=== PATIENT | female | born 1965 | race African-American/Black ===

== ENCOUNTER 2016-07-28 13:40 | Inpatient (IN) | payer BC ==
[~2016-07-28] VITALS: Ht 162.6 cm; Wt 121.5 kg
[~2016-07-28 13:40] MED LIST: ASPIRIN 81M81 MG/TA2 PO; CELEXA40 MG PO; DEXILANT60 MG PO; GLUCOPHAGE500 MG/TAB PO; LOPRESSOR 550 MG/TAB PO; NORCO 325 MG-51 TAB PO; PACERONE400 MG PO; PRINIVIL2.5 MG PO; WELLBUTRIN 75MG75 MG PO; XARELTO20 MG PO
[2016-07-28] MEDS ORDERED: NEXIUM 40MG40 MG PO (13:50)
[2016-07-28 14:41] LABS: CALCIUM 8.9 mg/dL (8.4-10.2); CREATININE, serum 0.97 mg/dL (0.52-1.25)
[2016-07-28 15:03] LABS: BASO # 0.1 (0.0-0.2); BASO % 1.2 % (0.0-2.0); EOS % 0.2 % (0-4.0); GRAN # 3.1 (1.4-6.5); GRAN % 61.9 % (42.2-75.2); LYMPH # 1.5 (1.2-3.4); MEAN CELL VOLUME 62 fl (80.0-100.0); MEAN CORPUSCULAR HGB CONC 28 g/dl (33.0-37.0); MEAN PLATELET VOLUME 10.1 fl (7.4-10.4); MONO # 0.4 (0.1-0.6); MONO % 7.5 % (1.7-9.3); PLATELET COUNT 843 K/mm3 (130-400); RED BLOOD COUNT 4.65 M/mm3 (4.10-5.30); REDCELL DISTRIBUTION WIDTH-CV 22.1 % (11.5-14.5)
[2016-07-28 15:06] LABS: HEMATOCRIT 28.8 % (37.0-47.0); MEAN CORPUSCULAR HEMOGLOBIN 17 pg (27.0-31.0)
[2016-07-28 15:34] LABS: MAGNESIUM 1.6 mg/dL (1.6-2.3)
[2016-07-28 16:21] VITALS: BP 110/77; PULSE 153; TEMP 97.9
[2016-07-28 19:01] VITALS: BP 110/77; PULSE 153; TEMP 98.1
[2016-07-28 20:00] VITALS: BP 135/78; PULSE 125; TEMP 97.8
[2016-07-29] VITALS: BP 105/90; PULSE 130; TEMP 97.7
[2016-07-29 04:00] VITALS: BP 127/98; PULSE 130; TEMP 98.5
[2016-07-29 06:40] LABS: BASO # 0.1 (0.0-0.2); BASO % 1.2 % (0.0-2.0); EOS % 0.8 % (0-4.0); GRAN % 60.5 % (42.2-75.2); LYMPH # 1.5 (1.2-3.4); LYMPH % 29.7 % (20.0-51.0); MEAN CELL VOLUME 63 fl (80.0-100.0); MEAN CORPUSCULAR HGB CONC 27 g/dl (33.0-37.0); MEAN PLATELET VOLUME 9.4 fl (7.4-10.4); MONO # 0.4 (0.1-0.6); MONO % 7.6 % (1.7-9.3); RED BLOOD COUNT 4.54 M/mm3 (4.10-5.30); REDCELL DISTRIBUTION WIDTH-CV 21.7 % (11.5-14.5)
[2016-07-29 06:42] LABS: HEMATOCRIT 28.7 % (37.0-47.0); HEMOGLOBIN 7.8 g/dl (12.5-16.0); MEAN CORPUSCULAR HEMOGLOBIN 17 pg (27.0-31.0); PLATELET COUNT 682 K/mm3 (130-400)
[2016-07-29 07:34] LABS: CALCIUM 8.4 mg/dL (8.4-10.2); CREATININE, serum 0.83 mg/dL (0.52-1.25)
[2016-07-29 08:30] LABS: FERRITIN 6 ng/mL (11-264)
[2016-07-29 08:53] VITALS: BP 116/94; PULSE 130; TEMP 98.5
[2016-07-29 12:25] VITALS: BP 106/95; PULSE 138
[2016-07-29 16:23] LABS: TOTAL IRON BINDING CAPACITY 522 ug/dL (265-497)
[2016-07-29 16:53] VITALS: PULSE 153
[2016-07-29 20:00] VITALS: BP 110/85; PULSE 148; TEMP 98.4
[2016-07-30] VITALS: BP 132/104; PULSE 135; TEMP 97.6
[2016-07-30 04:00] VITALS: BP 106/90; PULSE 125; TEMP 98.5
[2016-07-30 06:07] LABS: BASO # 0.1 (0.0-0.2); BASO % 1.4 % (0.0-2.0); EOS # 0.1 (0.0-0.7); EOS % 1.6 % (0-4.0); GRAN # 2.9 (1.4-6.5); GRAN % 58.2 % (42.2-75.2); LYMPH # 1.6 (1.2-3.4); MEAN CELL VOLUME 62 fl (80.0-100.0); MEAN CORPUSCULAR HGB CONC 27 g/dl (33.0-37.0); MEAN PLATELET VOLUME 9.6 fl (7.4-10.4); MONO # 0.4 (0.1-0.6); MONO % 7.6 % (1.7-9.3); REDCELL DISTRIBUTION WIDTH-CV 21.4 % (11.5-14.5)
[2016-07-30 06:14] LABS: HEMATOCRIT 25.6 % (37.0-47.0); MEAN CORPUSCULAR HEMOGLOBIN 17 pg (27.0-31.0); PLATELET COUNT 545 K/mm3 (130-400)
[2016-07-30 06:41] LABS: CALCIUM 7.9 mg/dL (8.4-10.2); CREATININE, serum 0.84 mg/dL (0.52-1.25); POTASSIUM 3.6 mmol/L (3.4-5.0)
[2016-07-30 08:43] VITALS: BP 106/90; PULSE 145
[2016-07-30] MEDS ORDERED: ELIQUIS 5MG PO (12:02)
[2016-07-30] MEDS ORDERED: PACERONE400 MG PO (12:03)
[2016-07-30] MEDS ORDERED: NIFEREX-15150 MG/CAP PO (12:06)
== END 2016-07-30 13:34 | disposition home or self-care (01) | DRG 309 ==
LOC: COL.ER 13:40 → IMCU 15:08
PROVIDERS: Emergency Medicine; Internal Medicine
DX: I48.0 Paroxysmal atrial fibrillation (principal); Z68.42 Body mass index [BMI] 45.0-49.9, adult; I50.22 Chronic systolic (congestive) heart failure; E66.01 Morbid (severe) obesity due to excess calories; F41.8 Other specified anxiety disorders; Z91.14 Patient's other noncompliance with medication regimen; D50.9 Iron deficiency anemia, unspecified; F10.10 Alcohol abuse, uncomplicated
CPT/HCPCS: 99223-AI; 99232-AI; 99239; J0282; J7050; J7060

== ENCOUNTER → 2017-10-29 | Outpatient (CLI) | payer BC ==
[~2017-10-29] VITALS: Ht 175.3 cm; Wt 127.7 kg
[~2017-10-29] MED LIST changes: +ELIQUIS 5MG PO; +NEXIUM 40MG40 MG PO; +NIFEREX-15150 MG/CAP PO; +WELLBUTRIN SR150 M1 PO
[2017-10-29 13:09] VITALS: BP 118/76; PULSE 60
== END ==
LOC: LIGHT 11:49
DX: G47.33 Obstructive sleep apnea (adult) (pediatric) (principal); E28.2 Polycystic ovarian syndrome; F32.9 Major depressive disorder, single episode, unspecified; E66.01 Morbid (severe) obesity due to excess calories; Z68.41 Body mass index [BMI] 40.0-44.9, adult; Z71.3 Dietary counseling and surveillance
CPT/HCPCS: G0463

== ENCOUNTER → 2017-12-07 | Outpatient (CLI) | payer BC | LOC: LIGHT 12:54 | DX: G47.33 Obstructive sleep apnea (adult) (pediatric) (principal); E28.2 Polycystic ovarian syndrome; F32.9 Major depressive disorder, single episode, unspecified; E66.01 Morbid (severe) obesity due to excess calories; Z68.41 Body mass index [BMI] 40.0-44.9, adult; Z71.3 Dietary counseling and surveillance ==

== ENCOUNTER → 2018-03-11 | Outpatient (CLI) | payer BC ==
[~2018-03-11] VITALS: Ht 175.3 cm; Wt 129.3 kg
[~2018-03-11] MED LIST changes: +BYSTOLIC5 MG PO; +PHENTERMINE15 MG PO
[2018-03-11 13:25] VITALS: BP 130/90; PULSE 68
== END ==
LOC: LIGHT 10:25
DX: G47.33 Obstructive sleep apnea (adult) (pediatric) (principal); E28.2 Polycystic ovarian syndrome; F32.9 Major depressive disorder, single episode, unspecified; E66.9 Obesity, unspecified; Z68.41 Body mass index [BMI] 40.0-44.9, adult; Z71.3 Dietary counseling and surveillance
CPT/HCPCS: G0463

== ENCOUNTER → 2018-04-22 | Outpatient (CLI) | payer BC ==
[~2018-04-22] VITALS: Ht 175.3 cm; Wt 128.8 kg
[2018-04-22 13:31] VITALS: BP 140/80; PULSE 78
== END ==
LOC: LIGHT 13:08
DX: G47.33 Obstructive sleep apnea (adult) (pediatric) (principal); E28.2 Polycystic ovarian syndrome; F32.9 Major depressive disorder, single episode, unspecified; E66.01 Morbid (severe) obesity due to excess calories; Z68.41 Body mass index [BMI] 40.0-44.9, adult; Z71.3 Dietary counseling and surveillance
CPT/HCPCS: G0463

== ENCOUNTER → 2018-06-03 | Outpatient (CLI) | payer BC ==
[~2018-06-03] VITALS: Ht 175.3 cm; Wt 125.4 kg
[2018-06-03 13:20] VITALS: BP 168/104; PULSE 75
== END ==
LOC: LIGHT 13:16
DX: G47.33 Obstructive sleep apnea (adult) (pediatric) (principal); E28.2 Polycystic ovarian syndrome; F32.9 Major depressive disorder, single episode, unspecified; E66.01 Morbid (severe) obesity due to excess calories; Z68.41 Body mass index [BMI] 40.0-44.9, adult; Z71.3 Dietary counseling and surveillance
CPT/HCPCS: G0463

== ENCOUNTER 2018-06-13 07:20 | Emergency (ER) | payer BC ==
[~2018-06-13] VITALS: Ht 175.3 cm; Wt 125.0 kg
[2018-06-13] MEDS ORDERED: DHEA 10 MG TAB1 EACH PO (07:32)
[2018-06-13 07:51] LABS: BASO % 0.8 % (0.0-2.0); EOS # 0.1 (0.0-0.7); EOS % 1.5 % (0-4.0); GRAN % 41.5 % (42.2-75.2); HEMATOCRIT 41.2 % (37.0-47.0); HEMOGLOBIN 13.6 g/dl (12.5-16.0); LYMPH # 2.4 (1.2-3.4); LYMPH % 50.2 % (20.0-51.0); MEAN CELL VOLUME 89 fl (80.0-100.0); MEAN CORPUSCULAR HEMOGLOBIN 29 pg (27.0-31.0); MEAN CORPUSCULAR HGB CONC 33 g/dl (33.0-37.0); MEAN PLATELET VOLUME 10.4 fl (7.4-10.4); MONO # 0.3 (0.1-0.6); MONO % 5.8 % (1.7-9.3); PLATELET COUNT 249 K/mm3 (130-400); RED BLOOD COUNT 4.62 M/mm3 (4.10-5.30); REDCELL DISTRIBUTION WIDTH-CV 13.4 % (11.5-14.5)
[2018-06-13 08:01] LABS: ALANINE AMINOTRANSFERASE 36 U/L (9-52); ALBUMIN 3.8 gm/dL (3.5-5.0); ALKALINE PHOSPHATASE 90 U/L (50-136); ANION GAP 8 mmol/L (7-16); AST,SGOT 28 U/L (15-37); BILIRUBIN,TOTAL < 0.1 mg/dL (0.0-1.0); BLOOD UREA NITROGEN 11 mg/dL (7-17); CALCIUM 8.8 mg/dL (8.4-10.2); CARBON DIOXIDE 25 mmol/L (22-30); CHLORIDE 106 mmol/L (98-107); CREATININE, serum 0.78 (0.52-1.25); GLUCOSE 129 mg/dL (74-106); POTASSIUM 3.9 mmol/L (3.4-5.0); SODIUM 139 mmol/L (137-145)
[2018-06-13] MEDS ORDERED: MEDROL 4MG DOSPA4 MG PO (10:35)
[2018-06-13] MEDS ORDERED: BYSTOLIC5 MG PO (10:35)
[2018-06-13 11:16] VITALS: BP 140/92; PULSE 70; TEMP 97.9
== END 2018-06-13 11:16 | disposition home or self-care (01) ==
LOC: COL.ER 07:20
PROVIDERS: Family Medicine
DX: M54.12 Radiculopathy, cervical region (principal); I10 Essential (primary) hypertension; I48.91 Unspecified atrial fibrillation
CPT/HCPCS: Q9967

== ENCOUNTER → 2018-07-23 | Outpatient (CLI) | payer BC ==
[~2018-07-23] MED LIST changes: +DHEA 10 MG TAB1 EACH PO; +MEDROL 4MG DOSPA4 MG PO
== END ==
LOC: COL.RAD 07-09 09:45
DX: M47.812 Spondylosis without myelopathy or radiculopathy, cervical region (principal)

== ENCOUNTER → 2018-09-09 | Outpatient (CLI) | payer BC ==
[~2018-09-09] VITALS: Ht 175.3 cm; Wt 126.6 kg
[2018-09-09 08:03] VITALS: BP 146/84; PULSE 72
== END ==
LOC: LIGHT 07-22 13:00
DX: G47.33 Obstructive sleep apnea (adult) (pediatric) (principal); E28.2 Polycystic ovarian syndrome; F32.9 Major depressive disorder, single episode, unspecified; E66.01 Morbid (severe) obesity due to excess calories; Z68.41 Body mass index [BMI] 40.0-44.9, adult; Z71.3 Dietary counseling and surveillance
CPT/HCPCS: G0463

== ENCOUNTER → 2019-01-19 | Outpatient (CLI) | payer BC ==
[~2019-01-19] MED LIST changes: +SAXENDA6 MG/ML SQ
== END ==
LOC: COL.RAD 08:20
DX: J90 Pleural effusion, not elsewhere classified (principal); R79.89 Other specified abnormal findings of blood chemistry
CPT/HCPCS: Q9967

== ENCOUNTER → 2019-01-27 | Outpatient (CLI) | payer BC ==
[~2019-01-27] VITALS: Ht 175.3 cm; Wt 137.7 kg
[~2019-01-27] MED LIST changes: +LANOXIN 0.25M0.25 MG PO
[2019-01-27 10:38] VITALS: BP 170/90; PULSE 64
== END ==
LOC: LIGHT 12-09 10:58
DX: G47.33 Obstructive sleep apnea (adult) (pediatric) (principal); E28.2 Polycystic ovarian syndrome; F32.9 Major depressive disorder, single episode, unspecified; E66.01 Morbid (severe) obesity due to excess calories; Z68.41 Body mass index [BMI] 40.0-44.9, adult; Z71.3 Dietary counseling and surveillance
CPT/HCPCS: G0463

== ENCOUNTER 2019-12-14 14:06 | Outpatient (RCR) | payer OTHER | END 2020-03-13 | disposition home or self-care (01) | LOC: WSOH | DX: M66.88 Spontaneous rupture of other tendons, other sites (principal); M25.461 Effusion, right knee; M25.552 Pain in left hip; I10 Essential (primary) hypertension; F41.8 Other specified anxiety disorders; G47.9 Sleep disorder, unspecified; Y99.0 Civilian activity done for income or pay ==